=== PATIENT | female | born 1945 | race Caucasian/White ===

== ENCOUNTER → 2017-01-25 | Outpatient (CLI) | payer OTHER ==
[~2017-01-25] VITALS: Ht 142.2 cm; Wt 86.3 kg
[~2017-01-25] MED LIST: ADULT LOW DOSE81 MG PO; AMBIEN 10 MG TA10 MG PO; ATORVASTATIN CA80 MG PO; CALCIUM 500 +1 EAC5 PO; CARVEDILOL25 MG PO; CELEXA PO; CELEXA40 MG PO; CENTRUM COMPLE1 EACH PO; CENTRUM SILVER1 EAC4 PO; COZAAR 50 MG TA50 M1 PO; CRESTOR PO; CRESTOR20 MG PO; CYMBALTA60 MG PO; DICLOFENAC SODI75 M1 PO; ENDOCET 10-3251 EACH PO; FISH OIL 1,001000 M1 PO; FOLIC ACID1 MG PO; GLUCOPHAGE500 MG PO; HYDROXYCHLOROQ200 M1 PO; KLOR-CON 10 ER10 MEQ PO; LASIX 20 MG TAB20 MG PO; METHOTREXATE 22.5 MG PO; NIACIN 100MG T100 M1 PO; NORCO 5-325 TA1 EACH PO; OMEGA 3-6-9 CO1 EACH; OMEGA-3100 MG PO; OMEPRAZOLE 20 M20 MG PO; OMEPRAZOLE PO; OXYCODONE-ACET1 EAC2 PO; PROPRANOLOL 20M20 M1 PO; REMICADE 1100 MG/VIA; SULFASALAZINE500 M1 PO; SULFASALAZINE500 M4 PO; TRAMADOL 50 MG50 MG PO; TRIAMTERENE-HC1 EAC1 PO; VITAMIN D400 UNI1 PO; VOLTAREN 50MG T50 MG PO; VOLTAREN PO; XANAX XR1 MG PO; ZOFRAN ODT4 MG PO
[2017-01-25 14:55] VITALS: BP 150/59
== END | disposition home or self-care (01) ==
LOC: PAIN 06:59
DX: M54.10 Radiculopathy, site unspecified (principal); G89.29 Other chronic pain; M06.9 Rheumatoid arthritis, unspecified; M96.1 Postlaminectomy syndrome, not elsewhere classified; Z98.890 Other specified postprocedural states

== ENCOUNTER → 2017-07-26 | Outpatient (CLI) | payer OTHER ==
[~2017-07-26] VITALS: Ht 139.7 cm; Wt 81.6 kg
[~2017-07-26] MED LIST changes: +DICLOFENAC SODI75 MG PO; -VOLTAREN 50MG T50 MG PO
--- NOTE | ~2017-07-26 | HPC ---
[facility] [place] [address] PAIN MANAGEMENT CONSULTATION Name: ALEJANDRO SPENCE Room #: REG DEJON MZenaida.#: [id number] Admission: 07/26/17 Attend Phys: Oscar Valdez MD Discharge: Date of : 43 Report #: [id number] THIS REPORT FOR: //name// CC: Aramis Mckinley MD DATE OF SERVICE: 07/26/2017 Followup visit for left hip pain. The patient returns to pain clinic today and has been sent by Dr. Himanshu Mckinley for a left hip injection. She has been complaining of left hip pain for some time and x-rays have confirmed severe osteoarthritis. She intends to have a hip replacement. Dr. Mckinley has suggested an injection to help with her pain management until surgery. She has responded previously to trochanteric bursa injections, but only temporarily. This might have simply been the cortisone effect. We have proceeded with a preauthorization and grateful that her insurance has agreed that we can proceed today with injection. She will not have to come back out in the bitter cold. MEDICATIONS: Rewritten and reconciled from the electronic medical record. She is on no blood thinners. She does take oxycodone 10/325 twice daily as needed and is using diclofenac. These medications were provided for her through our clinic under terms of written opioid agreement. We reviewed the details of that and CDC guidelines. Her last prescription for oxycodone was 60 tablets provided on 06/17/2017. No additional medications are requested today. PQRS REVIEW: The patient does have osteoarthritis, particularly in the left hip, which will soon be treated with a joint arthroplasty by Dr. Himanshu Mckinley. She does not smoke. As noted, she is on an opioid agreement through our clinic and we provided with modest amount of opioid. Current prescriptions are for less than 30 morphine milligram equivalents a day in the form of oxycodone 10/325 mg 1-2 tablets daily. She has not a significant fall risk at this point in time. All medications now are reviewed with the patient today before treatment. She is not on a blood thinner. She is morbidly obese with a BMI of 41.8 and weight loss is challenging for her at this time. We discussed some strategies for proper nutrition. PHYSICAL EXAMINATION: BMI is 41. Blood pressure 178/72. She does have some hypertension under treatment. She has localized [place] [id number] PAIN MANAGEMENT CONSULTATION Name: ALEJANDRO SPENCE Hi Room #: REG CLI [facility]#: [id number] Admission: 07/26/17 Attend Phys: Oscar Valdez MD Discharge: Date of : 43 Report #: [id number] internal and external rotation. Marked tenderness over the greater trochanter. IMPRESSION: 1. Left hip pain with osteoarthritis and anticipated joint arthroplasty in 2 months. She also has responded to trochanteric bursa injections suggesting some component of trochanteric bursitis. 2. Management of opioid medication. PLAN: Left hip injection under fluoroscopic guidance. PROCEDURE: She was taken to fluoroscopic suite, placed supine. Skin was prepped with ChloraPrep and anesthetized with 1% lidocaine. A 25-gauge 3-1/2-inch spinal needle was gently advanced into the joint capsule. Repositioning was required in order to obtain an arthrogram. This was then followed by 3 mL of 0.5% bupivacaine mixed with 40 mg of triamcinolone. She tolerated the procedure well and was observed for 45 minutes and discharged. Followup visit planned in the pain clinic after her hip replacement. Sooner in case medications are requested. <ELECTRONICALLY SIGNED> By: Oscar Valdez MD 09/08/17 1640 [id number] Oscar Valdez MD /nt
[2017-07-26 11:07] VITALS: BP 178/72
== END | disposition home or self-care (01) ==
LOC: PAIN 07:01
DX: M16.12 Unilateral primary osteoarthritis, left hip (principal); I10 Essential (primary) hypertension; E66.01 Morbid (severe) obesity due to excess calories; Z68.41 Body mass index [BMI] 40.0-44.9, adult; Z79.891 Long term (current) use of opiate analgesic; Z87.891 Personal history of nicotine dependence; Z79.82 Long term (current) use of aspirin; Z79.899 Other long term (current) drug therapy

== ENCOUNTER → 2017-09-09 | Outpatient (CLI) | payer OTHER ==
[~2017-09-09] VITALS: Ht 121.9 cm; Wt 79.4 kg
--- NOTE | ~2017-09-09 | HPC ---
[facility] [place] [address] PAIN MANAGEMENT CONSULTATION Name: ALEJANDRO SPENCE Room #: REG DEJON Gagan.#: [id number] Admission: 09/09/17 Attend Phys: Oscar Valdez MD Discharge: Date of : 43 Report #: [id number] THIS REPORT FOR: //name// CC: Aramis Valdez DATE OF SERVICE: 09/09/2017 REASON FOR VISIT: Followup visit for chronic pain. HISTORY OF PRESENT ILLNESS: The patient returns to pain clinic today to undergo a left hip replacement with Dr. Himanshu Mckinley on 09/09/2017. She is here today to renew her baseline medications, which she takes for chronic low back pain and hip pain. Her current medication dose is oxycodone 10/325 two tablets daily for a total of 30 morphine milligram equivalents per day. She is grateful for the relief that it provides. Her pain is typically at 10/10 with a shocking sensation with standing and walking. She is able to get modest relief with the medication with minimal side effects. She safeguards her medications carefully and shows no signs of addiction. PQRS review is completed by the patient and documented. She does have a history of osteoarthritis and rheumatoid arthritis. She will be having hip replacement within the next 10 days. She is 4 feet tall, 175 pounds with a BMI of 53.4. The challenges associated with obesity have been discussed. The inability to ambulate and walk makes this more and more challenging to manage. Blood pressure is 133/62 but that she does have a history of hypertension, under treatment. All medications were reviewed and reconciled from the electronic medical record today. Pain intensity is 10/10. She uses a cane and is a fall risk, but has not fallen in the last 3 months. PLAN: She has signed an opioid agreement with our clinic, which was reviewed today. We discussed the CDC guidelines, the opioid crisis in [place] and her responsibilities with these medications. A followup visit is scheduled for her after her surgery. I provided her with oxycodone 10/325 two tablets per day with release date prescriptions in 4 and 8 weeks. <ELECTRONICALLY SIGNED> By: Oscar Valdez MD 10/18/17 1408 1531 0351 Oscar Valdez MD /nt
[2017-09-09 11:07] VITALS: BP 133/62
== END ==
LOC: PAIN 07:27
DX: G89.29 Other chronic pain (principal); M54.5 Low back pain; Z96.642 Presence of left artificial hip joint; F11.90 Opioid use, unspecified, uncomplicated

== ENCOUNTER → 2018-01-17 | Outpatient (CLI) | payer OTHER ==
[~2018-01-17] VITALS: Ht 121.9 cm; Wt 81.6 kg
--- NOTE | ~2018-01-17 | HPC ---
[facility] [address] [place] [address] PAIN MANAGEMENT CONSULTATION Name: ALEJANDRO SPENCE Hi Room #: REG [facility] Gagan.#: [id number] Admission: 01/17/18 Attend Phys: Rich De La Cruz DO Discharge: Date of : 43 Report #: [id number] THIS REPORT FOR: //name// CC: Aramis De La Cruz DATE OF SERVICE: 01/17/2018 The patient is a 72-year-old female typically treated by Dr. Oscar Valdez for left hip pain, chronic axial back pain status post lumbar decompressive laminectomy, requiring complex medication management. Last seen in pain clinic 09/09/2017, continued on Percocet 10 mg b.i.d. The patient ultimately progressed to have total hip arthroplasty 10/15/2017. Subsequent to that, she has had 2 falls and dislocations. She has been in the ER twice with the subluxable hip. It has been reduced and now is actually doing fairly well. She uses a cane. She notes pain is primarily low back, right hip and leg. She rates pain is 7 on a VAS. Prior, she had had a revision laminectomy L3-L4 and fusion L4-L5 back in 2012. The axial back pain is fairly stable. The patient notes current pain is exacerbated with standing and walking, gets some relief when she is sitting. She denies any problems with daytime somnolence, mental acuity changes or constipation. PHYSICAL EXAMINATION: Shows a pleasant 72-year-old female, BMI is elevated at 54.9 kilograms per meter squared (4 feet tall, 180 pounds). Blood pressure 146/79, pulse 65, respirations are 20. Subjective pain score is 7 on a VAS. Rises from chair using armrest, modestly antalgic gait, though actually she is doing fairly well for about 3 months status post total hip arthroplasty. Does use a cane for balance. Lower extremity strength is generally preserved. She is tender across the low back. No discrete trigger points are noted. We reviewed the fact that opiate medications are being used to provide analgesia adequate to support activities of daily living, not attempting to achieve a specific pain score on the 0-10 Visual Analog Scale. The current opiate medications are providing sufficient analgesia to allow the patient to participate in activities of daily living. The patient is not exhibiting any aberrant behavior suggestive of drug diversion. The patient is not having any adverse reactions to medications. The patient is not suffering from daytime somnolence or mental acuity changes. The patient is managing opiate-induced constipation with appropriate bhgt-qrh-cuwlizi agents and dietary considerations. The patient was counseled on concern for caution with operating a motor vehicle while using opiate medications. [address] [address] PAIN MANAGEMENT CONSULTATION Name: SPENCEALEJANDRO Room #: REG [facility] Rosalinda#: [id number] Admission: 01/17/18 Attend Phys: Rich De La Cruz DO Discharge: Date of : 43 Report #: [id number] A physical exam was performed and the patient's functional status was evaluated. All patients with back pain were advised against the bed rest greater than 4 days and were advised to return to normal activities. Pain score assessment was noted and the treatment plan was reviewed with the patient. All current medications, both prescribed and OTC were reviewed and reconciled on the electronic medical record. Tobacco screening was accomplished and smoking cessation was advised when indicated. BMI was noted and diet/exercise modification was recommended for all patients following outside normal parameters. I reviewed with the patient today their responsibilities to safeguard prescription medications, reviewed their responsibility to utilize medications only as prescribed by the physician. They are to seek and receive pain medications only from 1 physician group ( [facility]). They are to use 1 pharmacy and keep the clinic informed if they change pharmacies. Their responsibilities include making followup visits in a timely fashion and to avoid abrupt discontinuation of medication usage. Their responsibilities further include bringing their medications (bottles from the pharmacy with residual pills) to the visit for possible confirmation of pill counts and the patient understands it is their responsibility to submit to random drug screens to ensure both that the medications prescribed are present, and that no other controlled substances are present. All prescriptions provided today were generated electronically. ASSESSMENT: Chronic hip pain status post lumbar decompressive laminectomy, requiring complex medication management, stable on low dose opiate, Percocet 10/325 b.i.d. equivalent to approximately 30 mg of morphine equivalence. RECOMMENDATIONS: I have taken the liberty of renewing current medication for another 3 months. Last review of the opiate consent to treat contract was 09/09/2017. The patient was discharged in good and stable condition. <ELECTRONICALLY SIGNED> By: Rich De La Cruz DO 01/19/18 0734 1439 1827 Rich De La Cruz DO /nt
[2018-01-17 10:25] VITALS: BP 146/79
== END ==
LOC: PAIN 01-13 07:07
DX: M25.551 Pain in right hip (principal); M54.5 Low back pain; G89.29 Other chronic pain; Z79.891 Long term (current) use of opiate analgesic

== ENCOUNTER → 2018-05-05 | Outpatient (CLI) | payer OTHER ==
[~2018-05-05] VITALS: Ht 142.2 cm; Wt 84.6 kg
--- NOTE | ~2018-05-05 | HPC ---
[facility] [place] [address] PAIN MANAGEMENT CONSULTATION Name: ALEJANDRO SPENCE Room #: REG DEJON Farah.#: [id number] Admission: 05/05/18 Attend Phys: Oscar Valdez MD Discharge: Date of : 43 Report #: [id number] THIS REPORT FOR: //name// CC: Aramis Valdez DATE OF SERVICE: 05/05/2018 Followup visit for chronic low back pain with radiculopathy. The patient is here today for renewal of pain medication. I provided with oxycodone 10/325 twice a day under terms of written agreement. This equates to a morphine milligram equivalence of 30. There are no other providers. She has previously been treated in the pain clinic with injections. She received a right transforaminal epidural injection in 2012, again in 2016 on 2 occasions. Today, she is complaining once again of pain in the right hip. It radiates in a radicular fashion down the right leg. She describes it as an electric burning sensation which would be consistent with a nerve sensation pain. She has a history of laminectomy x 2. PAST MEDICAL HISTORY: Comorbidities include hypertension, diabetes, and hyperlipidemia. In addition to her 2 previous back surgeries, she has had bilateral knee replacements for osteoarthritis and has had rotator cuff repair. She has rheumatoid arthritis. MEDICATIONS: Reviewed and reconciled with no changes. ALLERGIES: HUMIRA. SOCIAL HISTORY: She denies use of tobacco or alcohol. Social setting is challenging at this time. She has a daughter along with the daughter's who have moved in to her house along with her son. She is never alone. This has created some stress and strain for her. We have discussed the importance of safeguarding all medications under such circumstances. She has completed an opioid agreement signed in 09/2017. She is at low risk for addiction, but needs to safeguard her medications carefully. She denies use of tobacco, alcohol or any previous drug issues. PHYSICAL EXAMINATION: GENERAL: Demonstrates a pleasant, somewhat rotund, obese female, BMI is 41.8. VITAL SIGNS: Blood pressure 136/74, heart rate 64, respirations 20. MUSCULOSKELETAL: She moves from sitting to standing position, ambulates with an antalgic gait. Pain with all range of motion of the lumbar spine. [address] [address] PAIN MANAGEMENT CONSULTATION Name: GILBERTO SPENCEDEEPA Do Room #: REG [facility] [id number] Admission: 05/05/18 Attend Phys: Oscar Valdez MD Discharge: Date of : 43 Report #: [id number] raising is worse on the right and follows an L4-L5 distribution. IMPRESSION: 1. Post-laminectomy syndrome with radiculopathy. 2. Management of high risk medications under terms of an opioid agreement. RECOMMENDATIONS: 1. Continue to be active, exercise is important. 2. Manage medications carefully. 3. Consider returning clinic for epidural injection under fluoroscopic guidance. We would use a transforaminal approach on the right as before. She has responded very well to these with good duration of response. Would be acceptable tool for treatment at this point. By: [id number] Oscar Valdez MD /nt
--- NOTE | ~2018-05-05 | HPC ---
[facility] [place] [address] PAIN MANAGEMENT CONSULTATION Name: ALEJANDRO SPENCE Room #: REG DEJON Rosalinda#: [id number] Admission: 05/05/18 Attend Phys: Oscar Valdez MD Discharge: Date of : 43 Report #: [id number] THIS REPORT FOR: //name// CC: VIKI Valdez DATE OF SERVICE: 05/05/2018 REASON FOR VISIT: Followup visit for chronic cervicalgia with radiculopathy. HISTORY OF PRESENT ILLNESS: It has been over 2 years since I saw the patient for cervical pain with radiculopathy. She received a cervical epidural injection in 02/2016. She has done well over the course of the last 2 years. She has not felt the need to return to our clinic up until recently when she has had more and more pain in her neck radiating up into her arms, right worse than left. She has had an anterior cervical diskectomy and fusion in the past. She is 73 years old. She is interested in additional surgery. She is hopeful that she may be able to achieve some benefit from the epidural to avoid surgery. She has been on Plavix, but discontinued it in anticipation of the injection. In the interim, she fell fracturing her femur. This required a femoral nail. She continues to have some pain in the right hip. When asked about her fall, it appears that she was placed on gabapentin for shingles, the dizziness occurred with use of the gabapentin and was likely a contributor to her fall. PQRS REVIEW: Shows that she has a history of osteoarthritis involving her hip and knees. SOCIAL HISTORY: She denies use of tobacco or alcohol. PHYSICAL EXAMINATION: She has a BMI of 24.8. Blood pressure 153/54, heart rate is 61, respirations 14. Pain intensity is 8. She is not a fall risk at this time and has not fallen in the last 3 months. She is on blood thinner, Plavix, for cardiovascular disease and that has been discontinued in anticipation of her injection 10 days ago. She has no history of hypertension, is not taking an opioid. PHYSICAL EXAMINATION: Continuation reveals cervical tenderness posteriorly along the occiput and extending along the right neck. She has pain with neck flexion, extension and rotation. She has weakness with biceps and triceps, right worse than left. Terrazzo Layer strength is adequate. Deep tendon reflexes are [facility] [address] [place] [address] PAIN MANAGEMENT CONSULTATION Name: ALEJANDRO SPENCE Room #: REG TOMKadeem Tellez#: [id number] Admission: 05/05/18 Attend Phys: Oscar Valdez MD Discharge: Date of : 43 Report #: [id number] diminished at biceps, triceps and brachioradialis. She has normal reflexes of the lower extremities to diminished reflexes with no evidence of hyperreflexia to suggest cord compression. IMPRESSION: 1. Cervical radiculopathy. 2. History of anterior cervical diskectomy and fusion. 3. She has spinal stenosis below the level of her fusion. RECOMMENDATIONS: Cervical epidural injection under fluoroscopic guidance. The patient was taken to fluoroscopic suite for treatment. She was placed prone, skin prepped with ChloraPrep. Skin anesthetized over the C6-C7 interspace. A 20-gauge Tuohy epidural needle advanced in the epidural space with loss of resistance technique. There was no blood or CSF aspirated. 1 mL of Omnipaque was injected. Good spread of dye observed in the epidural space followed by 3 mL of 0.5% lidocaine mixed with 80 mg of triamcinolone. She tolerated the procedure well and was observed for 45 minutes and discharged. Follow up as needed. By: [id number] Oscar Valdez MD /nt
[2018-05-05 10:59] VITALS: BP 136/74
== END ==
LOC: PAIN 06:54
DX: M54.16 Radiculopathy, lumbar region (principal); M54.12 Radiculopathy, cervical region; G89.29 Other chronic pain; M48.02 Spinal stenosis, cervical region; M43.22 Fusion of spine, cervical region; M96.1 Postlaminectomy syndrome, not elsewhere classified; Z79.891 Long term (current) use of opiate analgesic

== ENCOUNTER → 2018-08-08 | Outpatient (CLI) | payer OTHER ==
[~2018-08-08] VITALS: Ht 142.2 cm; Wt 87.1 kg
[2018-08-08 09:59] VITALS: BP 144/63
--- NOTE | 2018-08-08 10:09 | NUR ---
Pain Clinic Assessment: 1. History of Osteoarthritis: LOW BACK HIPS History of Rheumatoid Arthritis: yes 2. Height: 4 ft. 8 in. 142.2 cm. Weight: 192.0 lb. oz. 87.091 kg. Patient's BMI: 43.1 3. Vital Signs: BP: 144/63 Pulse: 76 Resp: 15 Temp: 02 Sat: 96 ECG Mon: 4. Pain Intensity: 7 5. Fall Risk: Dizziness: N Needs help standing or walking: N Fallen in the last 3 months: N Fall risk comments: 6. Patient on Blood Thinner: NONE 7. History of Hypertension: Y 8. Opioid Therapy greater than 6 weeks: Y Opiate Contract Signed: 09/09/17 9. Risk Assessment Tool Provided: *LOW RISK 10. Functional Assessment Tool: 11. Recreational Drug Use: Never Drug Type: Tobacco Use: Former Smoker Tobacco Type: Amount or Packs/day: How Many Years: Alcohol Use: No Frequency: Quant:
--- NOTE | 2018-08-09 07:50 | HPC ---
[facility] [place] [address] PAIN MANAGEMENT CONSULTATION Name: ALEJANDRO SPENCE Hi Room #: REG [facility] Rosalinda#: [id number] Admission: 08/08/18 Attend Phys: Sandra Mae Discharge: Date of : 43 Report #: [id number] THIS REPORT FOR: //name// CC: Sandra Mae Aramis Kohler DATE OF SERVICE: 08/08/2018 CHIEF COMPLAINT: Low back pain with radiculopathy. HISTORY OF PRESENT ILLNESS: The patient returns to the pain clinic today for renewal of her pain medications. She tells me that these are very helpful in controlling her pain. She is rating her pain though today as 7/10. She said mostly in her lower back and right leg, occasionally in her left leg. She tells me that she has tenderness around her knee and thigh area to the touch. She denies any pain with sitting. She tells me it is worse with standing and walking. It is a constant, burning, chronic pain. She tells me she has not had an injection for quite a while, though she is thinking that it may be about time to do another injection. She tells me she has no problems with constipation and no problems with daytime somnolence. ALLERGIES: HUMIRA. CURRENT LIST OF MEDICATIONS: Oxycodone 10/325 b.i.d., diclofenac 75 b.i.d., Lasix 20 daily, aspirin 81 mg daily, Xanax 1 mg at bedtime, triamterene/hydrochlorothiazide daily, Celexa 40 mg at bedtime, omeprazole 20 mg daily, methotrexate weekly, Cozaar 50 mg b.i.d., sulfasalazine 500 mg b.i.d., carvedilol 25 mg b.i.d., Os-Cheko with vitamin D daily. PQRS: 1. She has a history of osteoarthritis in her low back, hips and also has rheumatoid arthritis and is being treated for both. 2. Height is 4 feet 8 inches, weight is 192, BMI is 43. 3. Vital signs: Blood pressure 144/63, pulse is 76, respirations 16, oxygen level is 96. 4. Pain score is 7/10. 5. Fall risk. Denies dizziness, does not need help walking or standing, has not fallen in the last 3 months. 6. She is not on any blood thinners, does take antihypertensive medicines. 7. Her opioid therapy is greater than 6 weeks, therefore an opioid signed contract is on the chart. 8. Her risk assessment tool is low. Her functional assessment is 18/70. 9. The patient denies recreational drug use. She is a former smoker and does not drink alcohol. We did check the prescription monitoring system. The patient is filling appropriately for her narcotics from Dr. Oscar Valdez in a timely fashion. She also does take alprazolam [place] [address] PAIN MANAGEMENT CONSULTATION Name: ALEJANDRO SPENCE Hi Room #: REG DEJON Tellez#: [id number] Admission: 08/08/18 Attend Phys: Sandra Mae Discharge: Date of : 43 Report #: [id number] been on this for a fpc medication. The patient tells me she safeguards her medications. PHYSICAL EXAMINATION: GENERAL: This is a well-developed, well-nourished, obese 73-year-old female who appears her stated age. She is alert and orientated and her affect is appropriate. HEENT: Normocephalic, atraumatic. Extraocular eye muscles are intact. Mucous membranes are moist. Hearing is adequate. NECK: No JVD or adenopathy. MUSCULOSKELETAL: She moves from sitting to standing position, ambulates with an antalgic gait. Complains of tenderness in her right thigh and knee area, tender to the touch. Pain with all range of motion in her lower spine. IMPRESSION: 1. Post-laminectomy syndrome with radiculopathy. 2. Management of high-risk medications under terms of written opioid agreement. 3. Rheumatoid arthritis. 4. Osteoarthritis involving bilateral hips. We reviewed the fact that opiate medications are being used to provide analgesia adequate to support activities of daily living, not attempting to achieve a specific pain score on the 0-10 Visual Analog Scale. The current opiate medications are providing sufficient analgesia to allow the patient to participate in activities of daily living. The patient is not exhibiting any aberrant behavior suggestive of drug diversion. The patient is not having any adverse reactions to medications. The patient is not suffering from daytime somnolence or mental acuity changes. The patient is managing opiate-induced constipation with appropriate xmex-wom-mwjcpov agents and dietary considerations. The patient was counseled on concern for caution with operating a motor vehicle while using opiate medications. A physical exam was performed and the patient's functional status was evaluated. All patients with back pain were advised against the bed rest greater than 4 days and were advised to return to normal activities. Pain score assessment was noted and the treatment plan was reviewed with the patient. All current medications, both prescribed and OTC were reviewed and reconciled on the electronic medical record. Tobacco screening was accomplished and smoking cessation was advised when indicated. BMI was noted and diet/exercise modification was recommended for all patients following outside normal parameters. I reviewed with the patient today their responsibilities to safeguard prescription medications, reviewed their responsibility to utilize medications only as prescribed by the physician. They are to seek and receive pain medications only from 1 physician group ( [facility]). They are to use 1 [facility] [address] [place] [address] PAIN MANAGEMENT CONSULTATION Name: ALEJANDRO SPENCE Room #: REG [facility].#: [id number] Admission: 08/08/18 Attend Phys: Sandra Mae Discharge: Date of : 43 Report #: [id number] pharmacy and keep the clinic informed if they change pharmacies. Their responsibilities include making followup visits in a timely fashion and to avoid abrupt discontinuation of medication usage. Their responsibilities further include bringing their medications (bottles from the pharmacy with residual pills) to the visit for possible confirmation of pill counts and the patient understands it is their responsibility to submit to random drug screens to ensure both that the medications prescribed are present, and that no other controlled substances are present. All prescriptions provided today were generated electronically. PLAN: 1. We discussed treatment options with the patient today. She tells me that she is managing her pain effectively with her current regimen and would like to continue that. Script was given today for oxycodone 10/325, #60 for release today, for an 8-week. 2. We discussed the patient will be switching pharmacies from [facility] to [facility]. We will make a note in her chart. [facility] has been quite cumbersome trying to fill her prescriptions and the patient wishes to choose a different pharmacy. 3. We did discuss treatment options with an epidural or a transforaminal. The patient tells me she is not quite ready to set appointment. She experiences steroid side effects, flushing of the face and she says she gets significant hot flashes with epidurals. Her pain is not significant enough to warrant having one, along with the side effects, so she will wait for the time being and make an appointment when needed. 4. The patient is seen in collaboration today with Dr. Manuel Fernandez. <ELECTRONICALLY SIGNED> By: Sandra Mae 08/09/18 0750 [id number] Sandra Mae /moose
== END ==
LOC: PAIN 07:40
DX: M54.16 Radiculopathy, lumbar region (principal); M16.0 Bilateral primary osteoarthritis of hip; M06.9 Rheumatoid arthritis, unspecified; M96.1 Postlaminectomy syndrome, not elsewhere classified; Z79.891 Long term (current) use of opiate analgesic; Z79.899 Other long term (current) drug therapy

== ENCOUNTER → 2018-10-31 | Outpatient (CLI) | payer OTHER ==
[~2018-10-31] VITALS: Ht 142.2 cm; Wt 83.9 kg
[~2018-10-31] MED LIST changes: +LIPITOR10 MG PO
[2018-10-31 12:37] VITALS: BP 146/69
--- NOTE | 2018-10-31 12:50 | NUR ---
Pain Clinic Assessment: 1. History of Osteoarthritis: LOW BACK HIPS History of Rheumatoid Arthritis: yes 2. Height: 4 ft. 8 in. 142.2 cm. Weight: 185.0 lb. oz. 83.916 kg. Patient's BMI: 41.5 3. Vital Signs: BP: 146/69 Pulse: 71 Resp: 18 Temp: 02 Sat: 97 ECG Mon: 4. Pain Intensity: 5 5. Fall Risk: Dizziness: N Needs help standing or walking: Y Fallen in the last 3 months: Y Fall risk comments: 6. Patient on Blood Thinner: NONE 7. History of Hypertension: Y 8. Opioid Therapy greater than 6 weeks: Y Opiate Contract Signed: 09/09/17 9. Risk Assessment Tool Provided: *LOW RISK-1 10. Functional Assessment Tool: 11. Recreational Drug Use: Never Drug Type: Tobacco Use: Former Smoker Tobacco Type: Amount or Packs/day: How Many Years: Alcohol Use: No Frequency: Quant:
--- NOTE | 2018-11-01 08:59 | HPC ---
[facility] [place] [address] PAIN MANAGEMENT CONSULTATION Name: ALEJANDRO SPENCE Room #: REG [facility] Rosalinda#: [id number] Admission: 10/31/18 ������������������ Attend Phys: Sandra Mae Discharge: ������������������ Date of : 43 Report #: [id number] THIS REPORT FOR: //name// CC: Sandra Kohler DATE OF SERVICE: 10/31/2018 CHIEF COMPLAINT: Low back pain with radiculopathy. HISTORY OF PRESENT ILLNESS: This is a very pleasant 73-year-old female who returns to the pain clinic today for refill of her pain medications. She tells me that her pain is a 5/10 today, mostly in her lower back and her right leg. She is not having any problems with any side effects of daytime sleepiness or constipation. She tells me that she has been doing quite well recently. 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 The patient is currently wearing a heart monitor. Today, she tells me that she was having episode of tachycardia and feeling her heart beating out of her chest. She has been wearing the monitor for 2 weeks and will go back to the [employer] next week to return her monitor. She is here today just to refill her pain medications. ALLERGIES: Urticaria. CURRENT MEDICATIONS: Multivitamin, atorvastatin 10 mg at bedtime, oxycodone 10/325 b.i.d., diclofenac sodium tablet 75 mg b.i.d., Lasix 20 mg daily, aspirin 81 mg daily, Xanax 0.25 mg at bedtime, triamterene/hydrochlorothiazide daily, Celexa 40 mg daily, omeprazole 20 mg daily, methotrexate 2.5 mg 10 tablets per week, Cozaar 50 mg b.i.d., sulfasalazine 2 tablets b.i.d., carvedilol 25 mg daily and Os-Cheko 500 mg daily. PQRS: 1. She has a history of osteoarthritis in her low back, hips and hands and rheumatoid arthritis in her hands. 2. Height is 4 feet 8 inches, weight is 185, BMI is 41. 3. Vital signs: Blood pressure 146/69, pulse is 71, respirations 14, oxygen sat is 97%. 4. Pain score is 5/10. 5. Fall risk. Denies dizziness. Does use a cane for walking and has fallen in the last 3 months, but not injured herself. 6. The patient is not on any blood thinners. She does take medicine for hypertension. 7. Opioid therapy is greater than 6 weeks; therefore, an opioid signed contract is on the chart. [address] [address] PAIN MANAGEMENT CONSULTATION Name: BEBEALEJANDRO Room #: REG Kade[facility] Tellez#: [id number] Admission: 10/31/18 ������������������ Attend Phys: Sandra Mae Discharge: ������������������ Date of : 43 Report #: [id number] 8. Risk assessment tool is low. Functional assessment is 25/70. 9. Recreational drug use, she denies. She is a former smoker and does not drink alcohol. We did check the prescription monitoring system. The patient is filling appropriately her medications from doctors within our clinic. She does safeguard her medications at all times. There is not a drug screen on the chart. I informed the patient that we will do a random drug screen on her as per the policy of our clinic. PHYSICAL EXAMINATION: GENERAL: This is a well-developed, well-nourished, well-hydrated 73-year-old female who appears her stated age. Placing her pain score at 5/10. HEENT: Normocephalic, atraumatic. Extraocular eye muscles are intact. Mucous membranes are moist. Hearing is adequate. MUSCULOSKELETAL: She moves from sitting to standing position, using the armrest of the chair. She ambulates with antalgic gait and uses a cane. She does complain of significant hand discomfort today from her rheumatoid arthritis and her swollen knuckles, especially on her left hand. ASSESSMENT AND PLAN: 1. Post-laminectomy syndrome with radiculopathy. 2. Management of high risk medication under terms of written opioid agreement. 3. Rheumatoid arthritis. 4. Osteoarthritis involving her hips, low back and hands. We reviewed the fact that opiate medications are being used to provide analgesia adequate to support activities of daily living, not attempting to achieve a specific pain score on the 0-10 Visual Analog Scale. The current opiate medications are providing sufficient analgesia to allow the patient to participate in activities of daily living. The patient is not exhibiting any aberrant behavior suggestive of drug diversion. The patient is not having any adverse reactions to medications. The patient is not suffering from daytime somnolence or mental acuity changes. The patient is managing opiate-induced constipation with appropriate gmtj-aaq-ymaxgmf agents and dietary considerations. The patient was counseled on concern for caution with operating a motor vehicle while using opiate medications. A physical exam was performed and the patient's functional status was evaluated. All patients with back pain were advised against the bed rest greater than 4 days and were advised to return to normal activities. Pain score assessment was noted and the treatment plan was reviewed with the patient. All current medications, both prescribed and OTC were reviewed and reconciled on the electronic medical record. Tobacco screening was accomplished and smoking cessation was advised when indicated. BMI was noted and diet/exercise modification was recommended for all patients following outside normal [facility] [address] [place] [address] PAIN MANAGEMENT CONSULTATION Name: ALEJANDRO PSENCE Room #: REG [facility].#: [id number] Admission: 10/31/18 ������������������ Attend Phys: Sandra Mae Discharge: ������������������ Date of : 43 Report #: [id number] parameters. I reviewed with the patient today their responsibilities to safeguard prescription medications, reviewed their responsibility to utilize medications only as prescribed by the physician. They are to seek and receive pain medications only from 1 physician group ( [facility]). They are to use 1 pharmacy and keep the clinic informed if they change pharmacies. Their responsibilities include making followup visits in a timely fashion and to avoid abrupt discontinuation of medication usage. Their responsibilities further include bringing their medications (bottles from the pharmacy with residual pills) to the visit for possible confirmation of pill counts and the patient understands it is their responsibility to submit to random drug screens to ensure both that the medications prescribed are present, and that no other controlled substances are present. All prescriptions provided today were generated electronically. PLAN: We discussed treatment options with the patient today. The patient would like a refill of her medications. She currently takes oxycodone 10/325, #60 for the month. This places her at the current morphine milliequivalent of 30 below the CDC guidelines; therefore, we will give the patient prescriptions to be released today, 4-week and 8-week. Dr. Oscar Valdez did come and see the patient as well today in collaborative care. The patient will make a followup appointment in 3 months' time. ��������������������������������������������� <ELECTRONICALLY SIGNED> ���������������������������������������� By: Sandra Mae ��������������������������������������������� 11/01/18 0859 [id number] Sandra Mae /nt
== END ==
LOC: PAIN 07:11
DX: M96.1 Postlaminectomy syndrome, not elsewhere classified (principal); M16.0 Bilateral primary osteoarthritis of hip; M47.26 Other spondylosis with radiculopathy, lumbar region; M19.041 Primary osteoarthritis, right hand; M19.042 Primary osteoarthritis, left hand; Z88.8 Allergy status to other drugs, medicaments and biological substances; Z79.899 Other long term (current) drug therapy

== ENCOUNTER → 2019-02-06 | Outpatient (CLI) | payer OTHER ==
[~2019-02-06] VITALS: Ht 142.2 cm; Wt 85.7 kg
[2019-02-06 10:28] VITALS: BP 141/62
--- NOTE | 2019-02-06 10:50 | NUR ---
Pain Clinic Assessment: 1. History of Osteoarthritis: LOW BACK HIPS History of Rheumatoid Arthritis: yes 2. Height: 4 ft. 8 in. 142.2 cm. Weight: 189.0 lb. oz. 85.730 kg. Patient's BMI: 42.4 3. Vital Signs: BP: 141/62 Pulse: 70 Resp: 20 Temp: 02 Sat: 95 ECG Mon: 4. Pain Intensity: 7 5. Fall Risk: Dizziness: N Needs help standing or walking: Y Fallen in the last 3 months: N Fall risk comments: 6. Patient on Blood Thinner: NONE 7. History of Hypertension: Y 8. Opioid Therapy greater than 6 weeks: Y Opiate Contract Signed: 09/09/17 9. Risk Assessment Tool Provided: *LOW RISK-1 10. Functional Assessment Tool: 11. Recreational Drug Use: Never Drug Type: Tobacco Use: Former Smoker Tobacco Type: Amount or Packs/day: How Many Years: Alcohol Use: No Frequency: Quant:
--- NOTE | 2019-02-07 09:20 | HPC ---
[facility] [place] [address] PAIN MANAGEMENT CONSULTATION Name: ALEJANDRO SPENCE iH [facility] [id number] Admission: 02/06/19 ������������������ Attend Phys: Sandra Mae Discharge: ������������������ Date of : 43 Report #: [id number] THIS REPORT FOR: //name// CC: Sandra Carneysantiago Spivey DATE OF SERVICE: 02/06/2019 CHIEF COMPLAINT: Low back pain with radiculopathy and right leg weakness. HISTORY OF PRESENT ILLNESS: This is a very pleasant 73-year-old female who returns to the pain clinic today for refill of her medications. She tells me that her pain score is 7/10 today mostly in her right lower calf in the frontal aspect. She complains of significant weakness and pain there. She also reports pain in her lumbar spine. It is worse with standing and is better when she sits down and uses her medication. She does use a cane for balance most often, but she tells me when she is working in her yard and in her garden she uses a walker for balance. The patient tells me that she denies any constipation or daytime sleepiness from her medications. She is wondering also today besides refill of her medications if she is able to get a prescription for physical therapy. ALLERGIES: HUMIRA. CURRENT LIST OF MEDICATIONS: Oxycodone 10/325 b.i.d., multivitamin, atorvastatin 10 mg at bedtime, diclofenac 75 mg b.i.d., Lasix 20 mg daily, aspirin 81 mg daily, Xanax 0.25 mg at bedtime, triamterene/hydrochlorothiazide 1 daily, Celexa 40 mg daily, omeprazole 20 mg daily, methotrexate 2.5 mg 10 tablets weekly, Cozaar 50 mg b.i.d., sulfasalazine 1000 mg b.i.d., carvedilol 25 mg b.i.d. and calcium. PQRS: 1. She has a history of osteoarthritis in her lower back, hands and hips as well as being treated for rheumatoid arthritis. 2. Height is 4 feet 8 inches, weight is 189 and BMI is 42. 3. Vital signs 141/62, pulse is 70, respirations 20 and oxygen sat is 95. 4. Pain score is 7/10. 5. Denies dizziness. Does need help walking and standing, uses a cane or walker. She has not fallen in the last 3 months. 6. The patient is not on any blood thinners, does take medicine for hypertension. 7. Opioid therapy is greater than 6 weeks; therefore, an opiate signed contract is on the chart. Her risk assessment tool is low. Functional assessment is 25/70. 8. Recreational drug use, she denies. She is a [place] [address] PAIN MANAGEMENT CONSULTATION Name: ALEJANDRO SPENCE Room #: REG DEJON Tellez#: [id number] Admission: 02/06/19 ������������������ Attend Phys: Sandra Mae Discharge: ������������������ Date of : 43 Report #: [id number] drink alcohol. We did check the prescription monitoring system. The patient is filling appropriately for her medications and is due for those today and actually has been slightly longer than a month since her last refill. PHYSICAL EXAMINATION: GENERAL: This is a well-developed, well-nourished, well-hydrated 73-year-old female who appears her stated age, placing her current pain score today at 7/10. HEENT: Normocephalic and atraumatic. Extraocular eye muscles are intact. Mucous membranes are moist. MUSCULOSKELETAL: The patient complains of significant pain in her right lower calf today in the anterior portion. It is tender to the touch. The patient complains of unsteadiness when walking on uneven ground. She feels like she has unsteadiness, ambulates with an antalgic gait, uses a cane or walker. She moves from sitting to standing position using the armrest of a chair. Her lower extremity strength judged to be 4/5 bilaterally. ASSESSMENT: 1. Post-laminectomy syndrome with lumbar radiculopathy. 2. Management of high risk medication under terms of written opioid agreement. 3. Rheumatoid arthritis. 4. Osteoarthritis involving multiple joints. We reviewed the fact that opiate medications are being used to provide analgesia adequate to support activities of daily living, not attempting to achieve a specific pain score on the 0-10 Visual Analog Scale. The current opiate medications are providing sufficient analgesia to allow the patient to participate in activities of daily living. The patient is not exhibiting any aberrant behavior suggestive of drug diversion. The patient is not having any adverse reactions to medications. The patient is not suffering from daytime somnolence or mental acuity changes. The patient is managing opiate-induced constipation with appropriate tqud-hyf-jsxximn agents and dietary considerations. The patient was counseled on concern for caution with operating a motor vehicle while using opiate medications. A physical exam was performed and the patient's functional status was evaluated. All patients with back pain were advised against the bed rest greater than 4 days and were advised to return to normal activities. Pain score assessment was noted and the treatment plan was reviewed with the patient. All current medications, both prescribed and OTC were reviewed and reconciled on the electronic medical record. Tobacco screening was accomplished and smoking cessation was advised when indicated. BMI was noted and diet/exercise modification was recommended for all patients following outside normal parameters. [facility] [address] [place] [address] PAIN MANAGEMENT CONSULTATION Name: ALEJANDRO SPENCE Room #: REG [facility]#: [id number] Admission: 02/06/19 ������������������ Attend Phys: Sandra Mae Discharge: ������������������ Date of : 43 Report #: [id number] I reviewed with the patient today their responsibilities to safeguard prescription medications, reviewed their responsibility to utilize medications only as prescribed by the physician. They are to seek and receive pain medications only from 1 physician group ( [facility]). They are to use 1 pharmacy and keep the clinic informed if they change pharmacies. Their responsibilities include making followup visits in a timely fashion and to avoid abrupt discontinuation of medication usage. Their responsibilities further include bringing their medications (bottles from the pharmacy with residual pills) to the visit for possible confirmation of pill counts and the patient understands it is their responsibility to submit to random drug screens to ensure both that the medications prescribed are present, and that no other controlled substances are present. All prescriptions provided today were generated electronically. PLAN: 1. We discussed treatment options with the patient today. The patient finds the oxycodone very beneficial. Scripts were given for , #60 for release today, 4-week and 8-week release. This places the patient at 30 morphine milliequivalent according to the CDC guidelines. 2. Urine drug screen was collected today as a random screen to be done yearly. 3. Scripts given to the patient for physical therapy to help with her right leg weakness and work with balance and mobility. 4. The patient is seen by Dr. Oscar aVldez who collaborated care today. The patient will return in 3 months' time. ��������������������������������������������� <ELECTRONICALLY SIGNED> ���������������������������������������� By: Sandra Mae ��������������������������������������������� 02/07/19 0920 [id number] Sandra Mae /nt
== END ==
LOC: PAIN 06:53
DX: M54.16 Radiculopathy, lumbar region (principal); M19.90 Unspecified osteoarthritis, unspecified site; M96.1 Postlaminectomy syndrome, not elsewhere classified

== ENCOUNTER → 2019-05-15 | Outpatient (CLI) | payer OTHER ==
[~2019-05-15] VITALS: Ht 142.2 cm; Wt 91.5 kg
[~2019-05-15] MED LIST changes: +NORVASC 2.5 MG2.5 M1 PO; +TRAZODONE HCL100 MG PO
[2019-05-15 09:05] VITALS: BP 164/71
--- NOTE | 2019-05-15 09:15 | NUR ---
Pain Clinic Assessment: 1. History of Osteoarthritis: LOW BACK HIPS History of Rheumatoid Arthritis: yes 2. Height: 4 ft. 8 in. 142.2 cm. Weight: 201.8 lb. oz. 91.536 kg. Patient's BMI: 45.3 3. Vital Signs: BP: 164/71 Pulse: 67 Resp: 18 Temp: 02 Sat: 93 ECG Mon: 4. Pain Intensity: 6-7 5. Fall Risk: Dizziness: N Needs help standing or walking: N Fallen in the last 3 months: N Fall risk comments: 6. Patient on Blood Thinner: NONE 7. History of Hypertension: Y 8. Opioid Therapy greater than 6 weeks: Y Opiate Contract Signed: 09/09/17 9. Risk Assessment Tool Provided: *LOW RISK-1 10. Functional Assessment Tool: 11. Recreational Drug Use: Never Drug Type: Tobacco Use: Former Smoker Tobacco Type: Amount or Packs/day: How Many Years: Alcohol Use: No Frequency: Quant:
--- NOTE | 2019-05-16 15:23 | HPC ---
[facility] [address] [place] [address] PAIN MANAGEMENT CONSULTATION Name: ALEJANDRO SPENCE Hi Room #: REG Kadeem Tellez#: [id number] Admission: 05/15/19 Attend Phys: Sandra Mae Discharge: Date of : 43 Report #: [id number] THIS REPORT FOR: //name// CC: Sandra Carneysantiago Spivey DATE OF SERVICE: 05/15/2019 CHIEF COMPLAINT: Chronic low back pain with radiculopathy and left shoulder pain. HISTORY OF PRESENT ILLNESS: This is a very pleasant 74-year-old female who returns to the pain clinic today for refill of her medications. She reports a pain score of 6-7 today. She has pain in her low back and right leg that she is also having left shoulder pain. She reports that she is going to have it replaced on 09/05/2018 so that continues to be a source of pain as well. Her pain is increased with walking and standing, but she finds her medication and heat very beneficial with relieving her low back pain. She denies any problems with constipation or daytime sleepiness. The patient reports that she did not go to physical therapy as we had ordered in January, she apologized for that, she never got around to it. She feels like her back has stabilized in her pain since that time, she believes she was having a flare, but feels back to her normal everyday pain currently. ALLERGIES: HUMIRA. CURRENT LIST OF MEDICATIONS: Norvasc 2.5 mg daily, trazodone 100 mg daily, oxycodone 10/325 b.i.d., multivitamin, Lipitor, Voltaren, Lasix, triamterene/hydrochlorothiazide, Celexa, omeprazole, methotrexate, Cozaar, sulfasalazine, Coreg and Os-Cheko. PATIENT'S PQRS: 1. She has history of osteoarthritic changes in her back, hips, knees and shoulders and also is being treated for rheumatoid arthritis. 2. Height is 4 feet 8 inches, weight is 201. BMI is 45. 3. Vital signs 164/71, pulse is 67, respirations 18, oxygen sat is 96. 4. Pain score is 6-7. 5. Denies dizziness, does not need help walking or standing, does use a cane though, has not fallen in the last 3 months. 6. The patient is not on any blood thinners, but does take medicine for hypertension. 7. Opioid therapy is greater than 6 weeks; therefore, an opioid signed contract is on the chart. Risk assessment tool is low. Functional assessment is 25/70. 8. Recreational drug use, she denies. She is a former smoker and does not drink alcohol. [address] [address] PAIN MANAGEMENT CONSULTATION Name: ALEJANDRO SPENCE Room #: REG DEJON Tellez#: [id number] Admission: 05/15/19 Attend Phys: Sandra Mae Discharge: Date of : 43 Report #: [id number] According to the prescription monitoring system, the patient is filling appropriately for her medications in a timely fashion and is due for those today. There is a recent drug screen on the chart that is appropriate for her medications. PHYSICAL EXAMINATION: GENERAL: This is a well-developed, well-nourished, well-hydrated 74-year-old female who is morbidly obese, placing her current pain score at 6-7/10 today. HEENT: Normocephalic, atraumatic. Extraocular eye muscles are intact. Mucous membranes are moist. MUSCULOSKELETAL: The patient has pain in her lumbosacral area that radiates into her right leg. She walks with an antalgic gait using a cane. She moves from sitting to standing position very slowly and using the armrest of the chair. She also complains of left shoulder pain with any range of motion, scheduled for surgery in a couple of months. ASSESSMENT: 1. Post-laminectomy syndrome with lumbar radiculopathy. 2. Rheumatoid arthritis. 3. Osteoarthritis involving multiple joints. 4. Management of high risk medications under terms of written opioid agreement. We reviewed the fact that opiate medications are being used to provide analgesia adequate to support activities of daily living, not attempting to achieve a specific pain score on the 0-10 Visual Analog Scale. The current opiate medications are providing sufficient analgesia to allow the patient to participate in activities of daily living. The patient is not exhibiting any aberrant behavior suggestive of drug diversion. The patient is not having any adverse reactions to medications. The patient is not suffering from daytime somnolence or mental acuity changes. The patient is managing opiate-induced constipation with appropriate azvp-jbz-afoblly agents and dietary considerations. The patient was counseled on concern for caution with operating a motor vehicle while using opiate medications. A physical exam was performed and the patient's functional status was evaluated. All patients with back pain were advised against the bed rest greater than 4 days and were advised to return to normal activities. Pain score assessment was noted and the treatment plan was reviewed with the patient. All current medications, both prescribed and OTC were reviewed and reconciled on the electronic medical record. Tobacco screening was accomplished and smoking cessation was advised when indicated. BMI was noted and diet/exercise modification was recommended for all patients following outside normal parameters. I reviewed with the patient today their responsibilities to safeguard [place] [id number] PAIN MANAGEMENT CONSULTATION Name: ALEJANDRO SPENCE Room #: REG [facility].#: [id number] Admission: 05/15/19 Attend Phys: Sandra Mae Discharge: Date of : 43 Report #: [id number] prescription medications, reviewed their responsibility to utilize medications only as prescribed by the physician. They are to seek and receive pain medications only from 1 physician group ( [facility]). They are to use 1 pharmacy and keep the clinic informed if they change pharmacies. Their responsibilities include making followup visits in a timely fashion and to avoid abrupt discontinuation of medication usage. Their responsibilities further include bringing their medications (bottles from the pharmacy with residual pills) to the visit for possible confirmation of pill counts and the patient understands it is their responsibility to submit to random drug screens to ensure both that the medications prescribed are present, and that no other controlled substances are present. All prescriptions provided today were generated electronically. PLAN: 1. We discussed treatment options with the patient today. The patient finds her oxycodone very beneficial. She does work part-time and keeps very active. Scripts given today for oxycodone #60. This places the current morphine mme at 28 per day. 2. The patient is scheduled for left shoulder replacement in August. She will return prior to that OR date and we will discuss pre and postop pain management at that time. 3. The patient is seen today in collaboration with Dr. Oscar Valdez. <ELECTRONICALLY SIGNED> By: Sandra Mae 05/16/19 1523 [id number] Sandra Mae /moose
== END ==
LOC: PAIN 06:47
DX: M54.16 Radiculopathy, lumbar region (principal); M06.9 Rheumatoid arthritis, unspecified; M19.90 Unspecified osteoarthritis, unspecified site; M96.1 Postlaminectomy syndrome, not elsewhere classified

== ENCOUNTER → 2019-08-24 | Outpatient (CLI) | payer OTHER ==
[~2019-08-24] VITALS: Ht 142.2 cm; Wt 84.6 kg
[2019-08-24 10:10] VITALS: BP 166/57
--- NOTE | 2019-08-24 10:13 | NUR ---
Pain Clinic Assessment: 1. History of Osteoarthritis: LOW BACK HIPS History of Rheumatoid Arthritis: yes 2. Height: 4 ft. 8 in. 142.2 cm. Weight: 186.6 lb. oz. 84.641 kg. Patient's BMI: 41.9 3. Vital Signs: BP: 166/57 Pulse: 57 Resp: 18 Temp: 02 Sat: 97 ECG Mon: 4. Pain Intensity: 7-8 5. Fall Risk: Dizziness: N Needs help standing or walking: Y Fallen in the last 3 months: N Fall risk comments: 6. Patient on Blood Thinner: NONE 7. History of Hypertension: Y 8. Opioid Therapy greater than 6 weeks: Y Opiate Contract Signed: 09/09/17 9. Risk Assessment Tool Provided: *LOW RISK-1 10. Functional Assessment Tool: 11. Recreational Drug Use: Never Drug Type: Tobacco Use: Former Smoker Tobacco Type: Amount or Packs/day: How Many Years: Alcohol Use: No Frequency: Quant:
--- NOTE | 2019-08-29 08:30 | HPC ---
[facility] [place] [address] PAIN MANAGEMENT CONSULTATION Name: ALEJANDRO SPENCE Room #: REG [facility] Rosalinda#: [id number] Admission: 08/24/19 Attend Phys: Sandra Mae Discharge: Date of : 43 Report #: [id number] THIS REPORT FOR: cc: Ce Spivey MD, Ce Mae,Sandra SNYDER ~ THIS REPORT FOR: //name// CC: Sandra Spivey DATE OF SERVICE: 08/24/2019 CHIEF COMPLAINT: Low back pain with radiculopathy. HISTORY OF PRESENT ILLNESS: This is a very pleasant 74-year-old female who returns to the pain clinic today for refill of her oxycodone that she uses to help treat her ongoing low back pain that radiates into her right leg. Today, she is reporting a pain score of 7-8. Her pain is worse with standing and walking. She feels that the medication as well as sitting and heat does help her. She is thinking about possibly scheduling an epidural with Dr. Oscar Valdez. Her last injection in her lumbar spine was in 2017. She reports it has been slowly getting worse. She does continue to work 2 days a week and she notices that she has more pain, especially on those days. Today, she denies any problems with constipation as a result of her medications. The patient tells me she recently started a Keto-like diet. Since we have seen her last, her son has moved in with her and together they are following a diet. She has lost 15 pounds since our last visit with her. Her goal is to lose at least another 30 pounds following this diet. She is hopeful that that weight reduction will also help some of her ongoing back pain. ALLERGIES: HUMIRA. CURRENT LIST OF MEDICINES: Oxycodone p.r.n., Norvasc, trazodone, multivitamin, Lipitor, Voltaren, Lasix, triamterene/hydrochlorothiazide, Celexa, omeprazole, methotrexate, Cozaar, sulfasalazine, Coreg and Os-Cheko. PQRS: 1. She has osteoarthritis of her back and hips and also is being treated for rheumatoid arthritis. 2. Height is 4 feet 8 inches, weight is 186, BMI is 41. 3. Vital signs 166/57, pulse is 57, respirations 18, oxygen sat is 97. 4. Pain score is 7-8. 5. Denies dizziness. Does use a cane for ambulation, has not fallen in the last 3 [place] [address] PAIN MANAGEMENT CONSULTATION Name: ALEJANDRO SPENCE Hi Room #: REG DEJON Tellez#: [id number] Admission: 08/24/19 Attend Phys: Sandra Mae Discharge: Date of : 43 Report #: [id number] 6. The patient is not on any blood thinners, but does take medicine for hypertension. 7. Opioid therapy is greater than 6 weeks; therefore, an opioid signed contract is on the chart. Risk assessment tool is low. Functional assessment is 25/70. 8. Recreational drug use, she denies. She is a former smoker and does not drink alcohol. According to the prescription monitoring system, the patient is filling appropriately for her medications. She is slightly pastime to fill her medicines. Her current morphine mEq per day is 30 according to the CDC guidelines. PHYSICAL EXAMINATION: GENERAL: The patient is a well-developed, well-nourished, well-hydrated 74-year-old female who is morbidly obese, placing her current pain score at 7/10 today. HEENT: Normocephalic, atraumatic. Extraocular eye muscles are intact. Mucous membranes are moist. MUSCULOSKELETAL: The patient has a slow antalgic gait, uses a cane for ambulation. She has pain across the lumbosacral region that radiates down her right leg following the L5-S1 dermatomal distribution. Lower extremity strength judged to be 5/5 in all major muscle groups. ASSESSMENT: 1. Post-laminectomy syndrome with lumbar radiculopathy. 2. Rheumatoid arthritis. 3. Osteoarthritis involving multiple joints. 4. Management of high risk medications under terms of written opioid agreement. We reviewed the fact that opiate medications are being used to provide analgesia adequate to support activities of daily living, not attempting to achieve a specific pain score on the 0-10 Visual Analog Scale. The current opiate medications are providing sufficient analgesia to allow the patient to participate in activities of daily living. The patient is not exhibiting any aberrant behavior suggestive of drug diversion. The patient is not having any adverse reactions to medications. The patient is not suffering from daytime somnolence or mental acuity changes. The patient is managing opiate-induced constipation with appropriate upmx-zwh-iwoxerd agents and dietary considerations. The patient was counseled on concern for caution with operating a motor vehicle while using opiate medications. PLAN: 1. We discussed treatment options with the patient today. Congratulated her on her weight loss of 15 pounds in the last 2 months. She will continue to work on losing more weight using a keto-like diet. We did discuss that with decreased weight, hopefully she will have less pain in her lumbar spine. [facility] [address] [place] [address] PAIN MANAGEMENT CONSULTATION Name: ALEJANDRO SPENCE Room #: [facility]#: [id number] Admission: 08/24/19 Attend Phys: Sandra Mae Discharge: Date of : 43 Report #: [id number] 2. We discussed possible treatment options of another lumbar epidural steroid injection. She has not had one performed since 2016. She will call for an appointment if she feels like she does need one prior to her medication refill. 3. We will send scripts electronically by Dr. Oscar Valdez for 10 oxycodone , #60 for today, for an 8 week. 4. The patient is seen in collaboration with Dr. Oscar Valdez who discussed this case today with me as well. <ELECTRONICALLY SIGNED> By: Sandra Mae 08/29/19 0830 [id number] [id number] Sandra Mae /nt
== END ==
LOC: PAIN 07:49
DX: Z76.0 Encounter for issue of repeat prescription (principal); M13.89 Other specified arthritis, multiple sites; M96.1 Postlaminectomy syndrome, not elsewhere classified; Z79.899 Other long term (current) drug therapy; Z79.891 Long term (current) use of opiate analgesic

== ENCOUNTER → 2019-12-18 | Outpatient (CLI) | payer OTHER | LOC: PAIN 07:06 | DX: M96.1 Postlaminectomy syndrome, not elsewhere classified (principal); M06.9 Rheumatoid arthritis, unspecified; M19.90 Unspecified osteoarthritis, unspecified site; Z79.891 Long term (current) use of opiate analgesic ==

== ENCOUNTER → 2020-01-05 | Outpatient (CLI) | payer OTHER ==
[~2020-01-05] VITALS: Ht 142.2 cm; Wt 77.1 kg
[~2020-01-05] MED LIST changes: +FOSAMAX 70 MG T70 MG PO
[2020-01-05 09:36] VITALS: BP 141/49
--- NOTE | 2020-01-05 09:57 | NUR ---
Pain Clinic Assessment: 1. History of Osteoarthritis: LOW BACK HIPS History of Rheumatoid Arthritis: yes 2. Height: 4 ft. 8 in. 142.2 cm. Weight: 170.0 lb. oz. 77.112 kg. Patient's BMI: 38.1 3. Vital Signs: BP: 141/49 Pulse: 54 Resp: 16 Temp: 02 Sat: 98 ECG Mon: 4. Pain Intensity: 7 5. Fall Risk: Dizziness: N Needs help standing or walking: Y Fallen in the last 3 months: N Fall risk comments: 6. Patient on Blood Thinner: NONE 7. History of Hypertension: Y 8. Opioid Therapy greater than 6 weeks: Y Opiate Contract Signed: 09/09/17 9. Risk Assessment Tool Provided: *LOW RISK-1 10. Functional Assessment Tool: 11. Recreational Drug Use: Never Drug Type: Tobacco Use: Former Smoker Tobacco Type: Amount or Packs/day: How Many Years: Alcohol Use: No Frequency: Quant:
--- NOTE | 2020-01-05 15:51 | HPC ---
[facility] [place] [address] PAIN MANAGEMENT CONSULTATION Name: ALEJANDRO SPENCE Room #: REG TOMKadeem Tellez#: [id number] Admission: 01/05/20 Attend Phys: Oscar Valdez MD Discharge: Date of : 43 Report #: [id number] THIS REPORT FOR: cc: Ce Spivey MD, Ce Valdez,Oscar Bell MD ~ CC: Ce Valdez DATE OF SERVICE: 01/05/2020 Followup visit for severe low back pain with radiculopathy, status post extensive lumbar surgery, post-laminectomy syndrome with radiculopathy. The patient is here today for an epidural injection. We discussed this at her prior visit. I thought as a result of her prior surgery that we might do best performing a bilateral transforaminal epidural injection. She has bilateral pain radiating today at the upper level of her scar and radiates in a dermatomal distribution that does not extend as much into the back in front of the legs as she had at prior visit. At the level of her fusion, the foramina are nearly obscured on the x-ray and after we entered the treatment room, I elected to proceed instead with a midline epidural injection above the level of her scar. We will see what the results of this injection are, if they are helpful. We could potentially go lower in the lumbar spine, but I fear that we will miss the pain generator if we go below her scar. We discussed all of this both before and also in the room while we were reviewing her films on the C-arm scope before I began. She has agreed to proceed with the injection. I feel it is best and safest. She was seen just recently on 12/18/2019 and medications were renewed. Today is procedure only visit. DIAGNOSIS: Post-laminectomy syndrome with radiculopathy. PROCEDURE: Lumbar epidural injection L2-L3 under fluoroscopic guidance. DESCRIPTION OF PROCEDURE: After informed consent, both in and out of the room, the patient agreed to go forward with the injection. She was placed in the prone position. Skin was prepped with ChloraPrep. Skin anesthetized over the L2-L3 interspace and a 20-gauge Tuohy epidural needle was advanced at first attempt in the epidural space with loss of resistance technique. There was no blood or CSF aspirated. A 1 mL of Omnipaque was injected and excellent epidurogram achieved. It was followed by 3 mL of 0.5% lidocaine mixed with 80 mg of triamcinolone. She tolerated the procedure well. She was observed for [address] [address] PAIN MANAGEMENT CONSULTATION Name: ALEJANDRO SPENCE Room #: REG [facility]#: [id number] Admission: 01/05/20 Attend Phys: Oscar Valdez MD Discharge: Date of : 43 Report #: [id number] minutes and discharged. A followup visit is planned for medication management in 2 months. <ELECTRONICALLY SIGNED> By: Oscar Valdez MD 01/05/20 1551 [id number] [id number] Oscar Valdez MD /nt
== END | disposition home or self-care (01) ==
LOC: PAIN 06:53
PROVIDERS: ATTEND Anesthesiology Pain Medicine
DX: M54.16 Radiculopathy, lumbar region (principal); M96.1 Postlaminectomy syndrome, not elsewhere classified; Z79.899 Other long term (current) drug therapy

== ENCOUNTER → 2020-04-11 | Outpatient (CLI) | payer OTHER ==
[~2020-04-11] VITALS: Ht 142.2 cm; Wt 79.2 kg
[~2020-04-11] MED LIST changes: +DIFLUNISAL500 MG PO; +PERCOCET 10-321 EAC1 PO
[2020-04-11 09:07] VITALS: BP 128/57
--- NOTE | 2020-04-11 09:19 | NUR ---
Pain Clinic Assessment: 1. History of Osteoarthritis: LOW BACK HIPS History of Rheumatoid Arthritis: yes 2. Height: 4 ft. 8 in. 142.2 cm. Weight: 174.6 lb. oz. 79.198 kg. Patient's BMI: 39.2 3. Vital Signs: BP: 128/57 Pulse: 63 Resp: 18 Temp: 02 Sat: 97 ECG Mon: 4. Pain Intensity: 6-7 5. Fall Risk: Dizziness: N Needs help standing or walking: Y Fallen in the last 3 months: Y Fall risk comments: 6. Patient on Blood Thinner: NONE 7. History of Hypertension: Y 8. Opioid Therapy greater than 6 weeks: Y Opiate Contract Signed: 09/09/17 9. Risk Assessment Tool Provided: *LOW RISK-1 10. Functional Assessment Tool: 11. Recreational Drug Use: Never Drug Type: Tobacco Use: Former Smoker Tobacco Type: Cigarettes Amount or Packs/day: How Many Years: Alcohol Use: No Frequency: Quant:
--- NOTE | 2020-04-11 12:58 | HPC ---
[facility] [address] [place] [address] PAIN MANAGEMENT CONSULTATION Name: ALEJANDRO SPENCE Room #: [facility] [id number] Admission: 04/11/20 Attend Phys: Sandra Mae Discharge: Date of : 43 Report #: [id number] THIS REPORT FOR: cc: Ce Spivey MD, Nidal MD Hocker,Sandra SNYDER ~ CC: Oscar Valdez MD DATE OF SERVICE: 04/11/2020 CHIEF COMPLAINT: Severe low back pain with radiculopathy, status post laminectomy. HISTORY OF PRESENT ILLNESS: This is a very pleasant 75-year-old female, who is returning to the pain clinic today for refill of her medications. She does report that the epidural Dr. Oscar Valdez performed in December afforded her only 50% relief for less than a week. She does report that the medications are helpful and do not cause daytime somnolence or constipation. She was disappointed that the injection did not help longer. She does report that she fell a couple of weeks ago, but was able to get up on her own. She did not injure herself in any way. She said that is the first fall she has had in several years. Today, the patient is complained of low back pain that radiates down her right leg following the L2-L3 dermatomal distribution. It is a constant, aching pain, rating her pain score as 6-7 today. It is worse with walking and standing. She states she knows her back is getting worse, but does not want to have surgery at this time. ALLERGIES: HUMIRA. CURRENT LIST OF MEDICATIONS: Diflunisal, Fosamax, oxycodone 10/325, Plaquenil, amlodipine, trazodone, multivitamin, Lipitor, Lasix, triamterene/hydrochlorothiazide, Celexa, omeprazole, Cozaar, sulfasalazine, carvedilol, and calcium. PQRS: 1. She has osteoarthritic changes in her back and hips and is also being treated for rheumatoid arthritis. 2. Height is 4 feet, 8 inches, weight 174, BMI is 39. Vital signs, 128/57, pulse is 63, respirations 18, oxygen sat is 97. Pain score is 6 to 7. Fall risk. Denies dizziness. Does need help walking, uses a cane and has fallen in the last 3 months. The patient is not on any blood thinners, but does take medicine for hypertension. Her opioid therapy is greater than 6 weeks; therefore, an opioid signed contract is on the chart. Risk assessment is low. Functional assessment is 28/70. 3. Recreational drug use, she denies. She is a former [place] [address] PAIN MANAGEMENT CONSULTATION Name: ALEJANDRO SPENCE Room #: REG DEJON Tellez#: [id number] Admission: 04/11/20 Attend Phys: Sandra Mae Discharge: Date of : 43 Report #: [id number] drink alcohol. According to the prescription monitoring system, the patient has been filling appropriately for her medications. Her morphine mEq according to the CDC guidelines is 45. PHYSICAL EXAMINATION: GENERAL: This is a well-developed, morbidly obese 75-year-old female who appears her stated age, placing her current pain score at 6-7 today. HEENT: Normocephalic, atraumatic. Extraocular eye muscles are intact. MUSCULOSKELETAL: She moves independently from the sitting to standing position and uses the chairs for assistance. She does use a cane. Her gait is antalgic. Her lower extremity strength is symmetrical at 5/5 in all major muscle groups with sensation intact. She does have pain in the lumbosacral region that radiates down the L3-L4, L4-L5 dermatomal distribution. IMPRESSION: 1. Post-laminectomy syndrome with radiculopathy. 2. Rheumatoid arthritis. 3. Multi joint osteoarthritis. 4. Management of high risk medications under terms of written opioid agreement. We reviewed the fact that opiate medications are being used to provide analgesia adequate to support activities of daily living, not attempting to achieve a specific pain score on the 0-10 Visual Analog Scale. The current opiate medications are providing sufficient analgesia to allow the patient to participate in activities of daily living. The patient is not exhibiting any aberrant behavior suggestive of drug diversion. The patient is not having any adverse reactions to medications. The patient is not suffering from daytime somnolence or mental acuity changes. The patient is managing opiate-induced constipation with appropriate uxpu-bqx-hioyyie agents and dietary considerations. The patient was counseled on concern for caution with operating a motor vehicle while using opiate medications. A physical exam was performed and the patient's functional status was evaluated. All patients with back pain were advised against the bed rest greater than 4 days and were advised to return to normal activities. Pain score assessment was noted and the treatment plan was reviewed with the patient. All current medications, both prescribed and OTC were reviewed and reconciled on the electronic medical record. Tobacco screening was accomplished and smoking cessation was advised when indicated. BMI was noted and diet/exercise modification was recommended for all patients following outside normal parameters. I reviewed with the patient today their responsibilities to safeguard prescription medications, reviewed their responsibility to utilize medications [address] [address] PAIN MANAGEMENT CONSULTATION Name: ALEJANDRO SPENCE Room #: REG [facility]#: [id number] Admission: 04/11/20 Attend Phys: Sandra Mae Discharge: Date of : 43 Report #: [id number] only as prescribed by the physician. They are to seek and receive pain medications only from 1 physician group ( [facility]). They are to use 1 pharmacy and keep the clinic informed if they change pharmacies. Their responsibilities include making followup visits in a timely fashion and to avoid abrupt discontinuation of medication usage. Their responsibilities further include bringing their medications (bottles from the pharmacy with residual pills) to the visit for possible confirmation of pill counts and the patient understands it is their responsibility to submit to random drug screens to ensure both that the medications prescribed are present, and that no other controlled substances are present. All prescriptions provided today were generated electronically. PLAN: 1. We discussed treatment options with the patient today. The patient does find her oxycodone beneficial, though she is slightly past her time to come to appointments. She did need to take less medication for the past few weeks, this has increased her pain. I encouraged her to make timely appointments, call when she fills her last prescription. We did discuss that she may take 2 extra strength Tylenol if she needs to throughout the day as well as her opioid medications. We discussed the limits of Tylenol and a daily dose. 2. The patient has recently started a new rheumatoid arthritis medication. She is hopeful in the next few weeks that she will notice any difference in some of her overall discomfort. 3. The patient did not experience long-term relief from her epidural steroid injection, we did discuss briefly ordering an x-ray. The patient is not willing to have surgery at this time by Dr. Oconnor. She would like to hold off on any further imaging to see if this new medication helps decrease some of her pain and inflammation. I explained to her that we may repeat a lumbar epidural steroid injection, possibly at a different level and see if she gets better relief. The patient verbalizes understanding. She will call if her pain continues to be problematic. 4. The patient is seen in collaboration with Dr. Oscar Valdez who did send 3 months of her oxycodone , #90 today. <ELECTRONICALLY SIGNED> By: Sandra Mae 04/11/20 [id number] Sandra Mae /nt
== END ==
LOC: PAIN 06:55
PROVIDERS: ATTEND Clinical Nurse Specialist Adult Health
DX: M96.1 Postlaminectomy syndrome, not elsewhere classified (principal); M54.16 Radiculopathy, lumbar region; M06.9 Rheumatoid arthritis, unspecified; Z79.891 Long term (current) use of opiate analgesic

== ENCOUNTER → 2020-07-22 | Outpatient (CLI) | payer OTHER ==
[~2020-07-22] VITALS: Ht 142.2 cm; Wt 80.8 kg
[2020-07-22 14:59] VITALS: BP 124/94
--- NOTE | 2020-07-22 15:10 | NUR ---
Pain Clinic Assessment: 1. History of Osteoarthritis: LOW BACK HIPS History of Rheumatoid Arthritis: yes 2. Height: 4 ft. 8 in. 142.2 cm. Weight: 178.2 lb. 12 oz. 80.831 kg. Patient's BMI: 40.0 3. Vital Signs: BP: 124/94 Pulse: 57 Resp: 20 Temp: 02 Sat: 96 ECG Mon: 4. Pain Intensity: 7 5. Fall Risk: Dizziness: N Needs help standing or walking: Y Fallen in the last 3 months: Y Fall risk comments: 6. Patient on Blood Thinner: NONE 7. History of Hypertension: Y 8. Opioid Therapy greater than 6 weeks: Y Opiate Contract Signed: 09/09/17 9. Risk Assessment Tool Provided: *LOW RISK-1 10. Functional Assessment Tool: 11. Recreational Drug Use: Never Drug Type: Tobacco Use: Former Smoker Tobacco Type: Amount or Packs/day: How Many Years: Alcohol Use: No Frequency: Quant:
== END ==
LOC: PAIN 06:58
PROVIDERS: ATTEND Anesthesiology Pain Medicine
DX: G89.29 Other chronic pain (principal); M54.5 Low back pain; M96.1 Postlaminectomy syndrome, not elsewhere classified; E66.01 Morbid (severe) obesity due to excess calories; M19.90 Unspecified osteoarthritis, unspecified site; M06.9 Rheumatoid arthritis, unspecified; Z88.8 Allergy status to other drugs, medicaments and biological substances; Z79.891 Long term (current) use of opiate analgesic; Z79.899 Other long term (current) drug therapy

== ENCOUNTER → 2020-10-14 | Outpatient (CLI) | payer OTHER ==
[~2020-10-14] VITALS: Ht 142.2 cm; Wt 81.2 kg
--- NOTE | 2020-10-14 09:39 | NUR ---
Pain Clinic Assessment: 1. History of Osteoarthritis: LOW BACK HIPS History of Rheumatoid Arthritis: yes 2. Height: ft. in. cm. Weight: lb. oz. kg. Patient's BMI: 3. Vital Signs: BP: Pulse: Resp: Temp: 02 Sat: ECG Mon: 4. Pain Intensity: 5 5. Fall Risk: Dizziness: Needs help standing or walking: Fallen in the last 3 months: Fall risk comments: 6. Patient on Blood Thinner: NONE 7. History of Hypertension: Y 8. Opioid Therapy greater than 6 weeks: Y Opiate Contract Signed: 09/09/17 9. Risk Assessment Tool Provided: *LOW RISK-1 10. Functional Assessment Tool: 11. Recreational Drug Use: Never Drug Type: Tobacco Use: Former Smoker Tobacco Type: Amount or Packs/day: How Many Years: Alcohol Use: No Frequency: Quant:
[2020-10-14 10:23] VITALS: BP 146/62
== END ==
LOC: PAIN 07:30
PROVIDERS: ATTEND Anesthesiology Pain Medicine
DX: G89.4 Chronic pain syndrome (principal); I35.0 Nonrheumatic aortic (valve) stenosis; I10 Essential (primary) hypertension; M06.9 Rheumatoid arthritis, unspecified; Z79.899 Other long term (current) drug therapy; Z87.891 Personal history of nicotine dependence

== ENCOUNTER → 2021-01-09 | Outpatient (CLI) | payer OTHER ==
[~2021-01-09] VITALS: Ht 142.2 cm; Wt 84.3 kg
[2021-01-09 08:49] VITALS: BP 136/76
--- NOTE | 2021-01-09 08:57 | NUR ---
Pain Clinic Assessment: 1. History of Osteoarthritis: LOW BACK HIPS History of Rheumatoid Arthritis: HANDS 2. Height: 4 ft. 8 in. 142.2 cm. Weight: 185.8 lb. oz. 84.278 kg. Patient's BMI: 41.7 3. Vital Signs: BP: 136/76 Pulse: 65 Resp: 18 Temp: 02 Sat: 100 ECG Mon: 4. Pain Intensity: 6 5. Fall Risk: Dizziness: N Needs help standing or walking: Y Fallen in the last 3 months: N Fall risk comments: 6. Patient on Blood Thinner: NONE 7. History of Hypertension: Y 8. Opioid Therapy greater than 6 weeks: Y Opiate Contract Signed: 09/09/17 9. Risk Assessment Tool Provided: LOW RISK-1 10. Functional Assessment Tool: 11. Recreational Drug Use: Never Drug Type: Tobacco Use: Former Smoker Tobacco Type: Amount or Packs/day: How Many Years: Alcohol Use: No Frequency: Quant:
== END ==
LOC: PAIN 06:53
PROVIDERS: ATTEND Clinical Nurse Specialist Adult Health
DX: M47.816 Spondylosis without myelopathy or radiculopathy, lumbar region (principal); E66.01 Morbid (severe) obesity due to excess calories; G89.29 Other chronic pain; I10 Essential (primary) hypertension; Z79.891 Long term (current) use of opiate analgesic; Z79.899 Other long term (current) drug therapy; Z87.891 Personal history of nicotine dependence

== ENCOUNTER → 2021-04-14 | Outpatient (CLI) | payer OTHER ==
[~2021-04-14] VITALS: Ht 142.2 cm; Wt 83.9 kg
[2021-04-14 13:19] VITALS: BP 159/73
--- NOTE | 2021-04-14 13:29 | NUR ---
Pain Clinic Assessment: 1. History of Osteoarthritis: LOW BACK HIPS History of Rheumatoid Arthritis: HANDS 2. Height: 4 ft. 8 in. 142.2 cm. Weight: 185.0 lb. oz. 83.916 kg. Patient's BMI: 41.5 3. Vital Signs: BP: 159/73 Pulse: 68 Resp: 18 Temp: 02 Sat: 91 ECG Mon: 4. Pain Intensity: 5 WITH MEDS 5. Fall Risk: Dizziness: N Needs help standing or walking: N Fallen in the last 3 months: N Fall risk comments: 6. Patient on Blood Thinner: NONE 7. History of Hypertension: Y 8. Opioid Therapy greater than 6 weeks: Y Opiate Contract Signed: 09/09/17 9. Risk Assessment Tool Provided: LOW RISK-1 10. Functional Assessment Tool: 11. Recreational Drug Use: Never Drug Type: Tobacco Use: Former Smoker Tobacco Type: Amount or Packs/day: How Many Years: Alcohol Use: No Frequency: Quant:
== END ==
LOC: PAIN 09:32
PROVIDERS: ATTEND Clinical Nurse Specialist Adult Health
DX: G89.29 Other chronic pain (principal); M47.816 Spondylosis without myelopathy or radiculopathy, lumbar region; M17.11 Unilateral primary osteoarthritis, right knee; M25.511 Pain in right shoulder; Z96.651 Presence of right artificial knee joint; Z79.899 Other long term (current) drug therapy; Z88.8 Allergy status to other drugs, medicaments and biological substances

== ENCOUNTER → 2021-07-07 | Outpatient (CLI) | payer OTHER ==
[~2021-07-07] VITALS: Ht 142.2 cm; Wt 88.4 kg
[2021-07-07 10:14] VITALS: BP 118/75
--- NOTE | 2021-07-07 10:25 | NUR ---
Pain Clinic Assessment: 1. History of Osteoarthritis: LOW BACK HIPS History of Rheumatoid Arthritis: HANDS 2. Height: 4 ft. 8 in. 142.2 cm. Weight: 194.8 lb. oz. 88.361 kg. Patient's BMI: 43.7 3. Vital Signs: BP: 118/75 Pulse: 66 Resp: 18 Temp: 02 Sat: 97 ECG Mon: 4. Pain Intensity: 7 5. Fall Risk: Dizziness: N Needs help standing or walking: N Fallen in the last 3 months: N Fall risk comments: 6. Patient on Blood Thinner: NONE 7. History of Hypertension: Y 8. Opioid Therapy greater than 6 weeks: Y Opiate Contract Signed: 09/09/17 9. Risk Assessment Tool Provided: LOW RISK-1 10. Functional Assessment Tool: 11. Recreational Drug Use: Never Drug Type: Tobacco Use: Former Smoker Tobacco Type: Amount or Packs/day: How Many Years: Alcohol Use: Yes Frequency: Special Occasions Quant: 1
== END ==
LOC: PAIN 08:43
PROVIDERS: ATTEND Anesthesiology Pain Medicine
DX: M47.26 Other spondylosis with radiculopathy, lumbar region (principal); G89.29 Other chronic pain; I35.0 Nonrheumatic aortic (valve) stenosis; M19.90 Unspecified osteoarthritis, unspecified site; M96.1 Postlaminectomy syndrome, not elsewhere classified; M06.9 Rheumatoid arthritis, unspecified; I10 Essential (primary) hypertension; F10.10 Alcohol abuse, uncomplicated; Z79.899 Other long term (current) drug therapy; Z87.891 Personal history of nicotine dependence; Z88.8 Allergy status to other drugs, medicaments and biological substances; Z68.41 Body mass index [BMI] 40.0-44.9, adult